=== PATIENT | female | born 1975 | race African-American/Black ===

== ENCOUNTER 2021-01-22 08:16 | Outpatient (CLI) | payer OTHER, SELFPAY | END 2021-01-22 08:17 | disposition home or self-care (01) | LOC: BICRAD 08:16 | PROVIDERS: ATTEND Family Medicine | DX: M25.562 Pain in left knee (principal) ==

== ENCOUNTER 2022-07-15 13:03 | Emergency (ER) | payer OTHER, SELFPAY ==
[2022-07-15 13:40] LABS: #Eosinphils 0.1 thou/uL (0.0-0.7); #Monocytes 0.9 thou/uL (0.11-0.59); #Neutrophils 5.1 thou/uL (1.40-6.50); %Basophils 0.3 % (0.0-1.0); %Eosinophils 0.7 % (0.0-10.0); %Lymphocytes 32.8 % (21.0-51.0); %Monocytes 9.6 % (0.0-10.0); %Neutrophils 56.5 % (42.0-75.0); Mean Corpuscular HGB CONC 31.4 g/dL (32.0-36.0); Mean Corpuscular Volume 89.1 fL (78.0-98.0); Mean Platelet Volume 6.7 fL (7.4-10.4); Platelet Count 338 thou/uL (130-400); RBC Distribution Width 12.6 % (11.5-14.5)
[2022-07-15 14:27] LABS: ALT (SGPT) 11 U/L (8-55); AST (SGOT) 14 U/L (5-34); Albumin 4.2 g/dL (3.5-5.0); Alkaline Phosphatase 120 U/L (40-110); Anion Gap 12 mmol/L (10-20); BUN (Urea Nitrogen) 10 mg/dL (7.0-18.7); Bilirubin, Total 0.3 mg/dL (0.2-1.2); Calc. Creatinine Clearance 0 mL/min (70-130); Calcium 10.6 mg/dL (7.8-10.44); Carbon Dioxide 23 mmol/L (22-29); Chloride 104 mmol/L (98-107); Estimated GFR 77; Globulin 3.2 g/dL (2.4-3.5); Glucose 142 mg/dL (70-105); Potassium 3.9 mmol/L (3.5-5.1); Protein, Total 7.4 g/dL (6.0-8.3); Sodium 135 mmol/L (136-145)
== END 2022-07-15 15:33 | disposition home or self-care (01) ==
LOC: ERS 13:03
DX: R42 Dizziness and giddiness (principal); E03.9 Hypothyroidism, unspecified; Z79.899 Other long term (current) drug therapy
CPT/HCPCS: 36416; 80053; 84484; 85025; 93005

== ENCOUNTER 2022-07-17 08:21 | Emergency (ER) | payer BC, SELFPAY ==
[2022-07-17 08:52] LABS: #Eosinphils 0.1 thou/uL (0.0-0.7); #Lymphocytes 2.4 thou/uL (1.20-3.40); #Neutrophils 4.1 thou/uL (1.40-6.50); %Basophils 0.6 % (0.0-1.0); %Lymphocytes 31.3 % (21.0-51.0); %Monocytes 12.5 % (0.0-10.0); %Neutrophils 54.6 % (42.0-75.0); Hemoglobin 11.9 g/dL (12.0-16.0); Mean Corpuscular HGB CONC 32.1 g/dL (32.0-36.0); Mean Corpuscular Hemoglobin 28.7 pg (27.0-31.0); Mean Corpuscular Volume 89.4 fL (78.0-98.0); Mean Platelet Volume 6.7 fL (7.4-10.4); Platelet Count 301 thou/uL (130-400); RBC Distribution Width 12.4 % (11.5-14.5); Red Blood Cell (RBC) Count 4.16 mill/uL (4.20-5.40); White Blood Cell (WBC) Count 7.6 thou/uL (4.8-10.8)
[2022-07-17 09:19] LABS: ALT (SGPT) 9 U/L (8-55); AST (SGOT) 11 U/L (5-34); Alkaline Phosphatase 117 U/L (40-110); Anion Gap 12 mmol/L (10-20); BUN (Urea Nitrogen) 11 mg/dL (7.0-18.7); Bilirubin, Total 0.3 mg/dL (0.2-1.2); Calc. Creatinine Clearance 0 mL/min (70-130); Calcium 10.5 mg/dL (7.8-10.44); Carbon Dioxide 23 mmol/L (22-29); Chloride 107 mmol/L (98-107); Estimated GFR 86; Globulin 2.4 g/dL (2.4-3.5); Glucose 133 mg/dL (70-105); Potassium 4.3 mmol/L (3.5-5.1); Protein, Total 6.4 g/dL (6.0-8.3); Sodium 138 mmol/L (136-145)
[2022-07-17 09:56] LABS: Bacteria/HPF Rare-Few HPF (None Seen); Bilirubin Negative (Negative); Blood, Urine 1+ (Negative); Clarity Clear (Clear); Glucose, Urine (Dipstick) Normal (Negative); Ketone, Urine Negative (Negative); Leukocyte Negative Leu/uL (Negative); Nitrite Negative (Negative); Protein, Urine (Dipstick) Negative (Neg-Trace); RBC/HPF 0-3 HPF (0-3); Specific Gravity, Urine 1.008 (1.002-1.036); Squamous Epithelial 0-3 HPF (0-3); Urobilinogen Normal mg/dL (Less than 2); WBC/HPF 0-3 HPF (0-3)
== END 2022-07-17 10:52 | disposition home or self-care (01) ==
LOC: ERS 08:21
DX: H81.10 Benign paroxysmal vertigo, unspecified ear (principal); E03.9 Hypothyroidism, unspecified; Z79.899 Other long term (current) drug therapy
CPT/HCPCS: 36415; 80053; 81003; 81015; 85025; 93005

== ENCOUNTER 2023-12-06 10:55 | Emergency (ER) | payer BC | END 2023-12-06 11:42 | disposition left against medical advice (07) | LOC: ERS 10:55 | DX: Z53.21 Procedure and treatment not carried out due to patient leaving prior to being seen by health care provider (principal) ==